=== PATIENT | female | born 1990 | race African-American/Black ===

== ENCOUNTER 2016-03-22 19:11 | Emergency (ER) | payer MEDICAID ==
[~2016-03-22 19:11] MED LIST: ACYC400T PO; [UNRECOGNIZED DRUG - CODE] TOPICAL
[2016-03-22 19:32] VITALS: BP 125/81; PULSE 77; RESP 16; TEMP 98; O2SAT 100
[2016-03-22] MEDS ORDERED: CYCL1TAB29 PO (20:18)
[2016-03-22] MEDS ORDERED: IBUP800T23 PO (20:18)
--- NOTE | 2016-03-22 20:19 | PD ---
HPI Chief Complaint: Musculoskeletal Complaint Time Seen by Provider: 20:16 Travel History International Travel<30 days: No Contact w/Intl Traveler<30days: No Traveled to known affect area: No History of Present Illness HPI Patient is a 25-year-old female who presents emergency department for evaluation of right shoulder pain. Patient states that she was attempting to catch her child when she slipped and landed on her shoulder. She states that she is able to move it but it's sore. She denies any numbness or tingling or weakness in her upper extremities. She denies any head injury or loss of consciousness. She reports the pain as a 4/10. Patient has not taken anything for the pain. PFSH Past Medical History Medical History: Denies Significant Hx Diminished Hearing: No Immunizations Current: Yes ?: Not : 1 Para: 1 Past Surgical History Section: Yes Social History Alcohol Use: No Tobacco Use: No Substance Use: No Allergies-Medications (Allergen,Severity, Reaction): Coded Allergies: No Known Allergies (Verified , 03/22/16) Reported Meds & Prescriptions Reported Meds & Active Scripts Active Flexeril (Cyclobenzaprine HCl) 10 Mg Tab 10 Mg PO TID PRN 10 Days Ibuprofen 800 Mg Tab 800 Mg PO Q8H PRN Review of Systems Except as stated in HPI: all other systems reviewed are Neg Musculoskeletal: Positive: Myalgias, Pain Physical Exam Narrative GENERAL: Well-nourished, well-developed patient. SKIN: Warm and dry. HEAD: Normocephalic. EYES: No scleral icterus. No injection or drainage. NECK: Supple, trachea midline. No JVD or lymphadenopathy. CARDIOVASCULAR: Regular rate and rhythm without murmurs, gallops, or rubs. RESPIRATORY: Breath sounds equal bilaterally. No accessory muscle use. GASTROINTESTINAL: Abdomen soft, non-tender, nondistended. MUSCULOSKELETAL: No cyanosis, or edema. Full range of motion in right shoulder , negative apprehension test, positive radial pulses, 5/5 muscle strength in bilateral upper extremities. Patient is neurovascularly intact. Nontender to palpation. BACK: Nontender without obvious deformity. No CVA tenderness. Data Data Last Documented VS Vital Signs Date Time Temp Pulse Resp B/P Pulse Ox O2 Delivery O2 Flow Rate FiO2 03/22/16 19:32 98.0 77 16 125/81 100 Room Air MDM Medical Decision Making Medical Screen Exam Complete: Yes Emergency Medical Condition: Yes Interpretation(s) Vital Signs Date Time Temp Pulse Resp B/P Pulse Ox O2 Delivery O2 Flow Rate FiO2 03/22/16 19:32 98.0 77 16 125/81 100 Room Air Differential Diagnosis Sprain versus strain versus fracture versus contusion versus other Narrative Course Patient is a 25-year-old female who presented to emergency for evaluation of right shoulder pain after a slip and fall that occurred this morning. Patient has no other complaints at this time. She has been able to move her arm without difficulty however she reports it being sore. Patient is neurologically and neurovascularly intact with full range of motion in her right shoulder. There is no obvious deformities noted, no erythema, ecchymosis noted. At this time patient be treated conservatively with ibuprofen and a muscle relaxer. She is encouraged to continue range of motion, alternate heat and ice to affected area. She is encouraged to follow-up with her primary doctor or orthopedic surgeon for further evaluation and management. Alternatively patient was encouraged return to emergency department for any new or worsening symptoms. Patient verbalized understanding of instructions. Patient is stable for discharge. Diagnosis Primary Impression: Shoulder pain, right Qualified Code: M25.511 - Acute pain of right shoulder Referrals: Primary Care Physician Patient Instructions: General Instructions, Muscle Strain (ED), Shoulder Pain ( GEN) Additional Instructions: Follow-up with your primary doctor Take medications as directed Return to emergency department he new or worsening symptoms Continue range of motion exercises, alternate HEAT and ice to affected area Med/Other Pt SpecificInfo: Prescription(s) given Scripts Cyclobenzaprine (Flexeril)10 Mg Tab10 Mg PO TID PRN (MUSCLE SPASM) 10 Days Ref 0 Prov:Lindsey Franco 03/22/16 Ibuprofen 800 Mg [id number] Mg PO Q8H PRN (Pain/Inflammation) #60 TAB Ref 0 Prov:Lindsey Franco 03/22/16 Disposition: 01 DISCHARGE HOME Condition: Stable Lindsey Franco Mar 22, 2016 20:18
[2016-04-12] MEDS ORDERED: CIPR-9 PO (19:32)
[2016-04-12] MEDS ORDERED: METR500T10 PO (19:32)
[2016-06-12] MEDS ORDERED: FLUC150T PO (14:11)
[2016-07-04] MEDS ORDERED: [UNRECOGNIZED DRUG - CODE] TOPICAL (14:16)
== END 2016-03-22 20:32 | disposition home or self-care (01) ==
LOC: PHED 19:11 → PHEFT 20:32
DX: M25.511 Pain in right shoulder (principal); W01.0XXA Fall on same level from slipping, tripping and stumbling without subsequent striking against object, initial encounter; Y93.F9 Activity, other caregiving
CPT/HCPCS: 99283

== ENCOUNTER 2016-04-14 13:55 | Emergency (ER) | payer MEDICAID ==
[~2016-04-14] VITALS: Ht 152.4 cm; Wt 56.0 kg
[~2016-04-14 13:55] MED LIST changes: -ACYC400T PO; +CIPR-9 PO; +METR500T10 PO; -[UNRECOGNIZED DRUG - CODE] TOPICAL
[2016-04-14 14:05] VITALS: BP 105/74; PULSE 90; RESP 15; TEMP 99; O2SAT 100
--- NOTE | 2016-04-14 14:24 | PD ---
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 She denies any fevers, vomiting, or any other symptoms. She states that her pelvic pain is about a 4 out of 10 and is worse when she walks around or moves. She states that she had talked to her FOOD PREPARER and was given Flagyl and ciprofloxacin starting yesterday. Modifying Factors: None Associated Signs & Symptoms: Pelvic pain, spotty vaginal bleeding, whitish discharge, diarrhea Risk Factors: None PFSH Past Medical History Medical History: Denies Significant Hx Diminished Hearing: No Immunizations Current: Yes ?: Unknown LMP: 03/24/2016 : 1 Para: 1 Past Surgical History Section: Yes Social History Alcohol Use: No Tobacco Use: No Substance Use: No Allergies-Medications (Allergen,Severity, Reaction): Coded Allergies: No Known Allergies (Verified , 04/14/16) Reported Meds & Prescriptions Reported Meds & Active Scripts Active Cipro (Ciprofloxacin HCl) 500 Mg Tab 500 Mg PO BID Metronidazole 500 Mg Tab 500 Mg PO TID Review of Systems Except as stated in HPI: all other systems reviewed are Neg Physical Exam Narrative GENERAL: Well-nourished, well-developed young -[place] female patient in no acute distress. SKIN: Warm and dry. HEAD: Normocephalic. EYES: No scleral icterus. No injection or drainage. NECK: Supple, trachea midline. CARDIOVASCULAR: Regular rate and rhythm without murmurs, gallops, or rubs. RESPIRATORY: Breath sounds equal bilaterally. No accessory muscle use. GASTROINTESTINAL: Abdomen soft, mild suprapubic tenderness without guarding or rebound, nondistended. GENITOURINARY: Normal external genitalia without lesions or erythema. Vaginal vault with dark blood but no significant drainage. Cervical os was closed without drainage. No cervical motion tenderness. Uterus nontender and nonenlarged. Bilateral adnexa nontender without masses. MUSCULOSKELETAL: No cyanosis, or edema. BACK: Nontender without obvious deformity. No CVA tenderness. Data Data Last Documented VS Vital Signs Date Time Temp Pulse Resp B/P Pulse Ox O2 Delivery O2 Flow Rate FiO2 04/14/16 15:00 90 14 106/69 100 Room Air 04/14/16 14:05 99.0 Orders Complete Blood Count With Diff (04/14/16 14:20) Comprehensive Metabolic Panel (04/14/16 14:20) Urinalysis - C+S If Indicated (04/14/16 14:20) Iv Access Insert/Monitor (04/14/16 14:20) Ecg Monitoring (04/14/16 14:20) Oximetry (04/14/16 14:20) Sodium Chloride 0.9% Flush (Ns Flush) (04/14/16 14:30) Ed Urine Pregnancytest Poc (04/14/16 14:20) Gc And Chlamydia Pcr (04/14/16 14:20) Wet Prep Profile (04/14/16 14:20) Labs Laboratory Tests Test 04/14/16 04/14/16 04/14/16 14:30 14:40 15:00 White Blood Count 7.2 TH/MM3 Red Blood Count 4.08 MIL/MM3 Hemoglobin 12.4 GM/DL Hematocrit 37.1 % Mean Corpuscular Volume 90.9 FL Mean Corpuscular Hemoglobin 30.3 PG Mean Corpuscular Hemoglobin 33.3 % Concent Red Cell Distribution Width 13.1 % Platelet Count 316 TH/MM3 Mean Platelet Volume 6.9 FL Neutrophils (%) (Auto) 72.4 % Lymphocytes (%) (Auto) 18.2 % Monocytes (%) (Auto) 8.1 % Eosinophils (%) (Auto) 1.1 % Basophils (%) (Auto) 0.2 % Neutrophils # (Auto) 5.2 TH/MM3 Lymphocytes # (Auto) 1.3 TH/MM3 Monocytes # (Auto) 0.6 TH/MM3 Eosinophils # (Auto) 0.1 TH/MM3 Basophils # (Auto) 0.0 TH/MM3 CBC Comment DIFF FINAL Differential Comment Sodium Level 141 MEQ/L Potassium Level 3.4 MEQ/L Chloride Level 106 MEQ/L Carbon Dioxide Level 26.4 MEQ/L Anion Gap 9 MEQ/L Blood Urea Nitrogen 7 MG/DL Creatinine 0.62 MG/DL Estimat Glomerular Filtration 144 ML/MIN Rate Random Glucose 91 MG/DL Calcium Level 8.5 MG/DL Total Bilirubin 0.3 MG/DL Aspartate Amino Transf 13 U/L (AST/SGOT) Alanine Aminotransferase 14 U/L (ALT/SGPT) Alkaline Phosphatase 69 U/L Total Protein 7.9 GM/DL Albumin 3.8 GM/DL Clue Cells (Wet Prep) NONE SEEN Vaginal Trichomonas (Wet Prep) NONE SEEN Vaginal Yeast (Wet Prep) NONE SEEN Urine Collection Type CLEAN CATCH Urine Color YELLOW Urine Turbidity CLEAR Urine pH 5.5 Urine Specific [place] 1.021 Urine Protein TRACE mg/dL Urine Glucose (UA) NEG mg/dL Urine Ketones TRACE mg/dL Urine Occult Blood LARGE Urine Nitrite NEG Urine Bilirubin NEG Urine Leukocyte Esterase SMALL Urine RBC 20-24 /hpf Urine WBC 3-5 /hpf Urine Squamous Epithelial 6-8 /hpf Cells Microscopic Urinalysis Comment CULT NOT INDICATED Urine Collection Time 15:00 [facility] Medical Decision Making Medical Screen Exam Complete: Yes Emergency Medical Condition: Yes Medical Record Reviewed: Yes Interpretation(s) Laboratory Tests Test 04/14/16 04/14/16 14:30 15:00 Mean Platelet Volume 6.9 FL (7.0-11.0) Neutrophils (%) (Auto) 72.4 % (16.0-70.0) Monocytes (%) (Auto) 8.1 % (0.0-8.0) Potassium Level 3.4 MEQ/L (3.5-5.1) Aspartate Amino Transf 13 U/L (15-37) (AST/SGOT) Urine Ketones TRACE mg/dL (NEG) Urine Occult Blood LARGE (NEG) Urine Leukocyte Esterase SMALL (NEG) Urine RBC 20-24 /hpf (0-3) Urine Squamous Epithelial 6-8 /hpf (0-5) Cells Differential Diagnosis Pelvic pains, vaginal discharge, spotty vaginal bleeding, diarrhea gastroenteritis versus cervicitis versus UTI versus PID versus threatened AB versus ectopic Narrative Course Pelvic exam is unremarkable except for vaginal bleeding. Wet prep is negative. She is not . UA did not show significant signs of UTI. Abdomen is fairly benign and I do not suspect an acute intra-abdominal process. Lab work did not indicate significant leukocytosis. At this point, I do not suspect acute processes. However, she may have some dysfunctional uterine bleeding causing the irregularity in her menses. Patient is already on antibiotics which was prescribed by her primary care. At this point, she should continue with the medications and follow-up with her physician. Return for any worsening in symptoms as necessary. The plan has been discussed with her and she states understanding. Diagnosis Primary Impression: Visit for gynecologic examination Disposition: 01 DISCHARGE HOME Condition: Stable Rodolfo Jimenez MD Apr 14, 2016 14:24
[2016-04-14] MEDS ORDERED: SODIUM CHLORIDE 0.9% FLUSH 5 ML FLUSH IVF PRN (14:30)
[2016-04-14 14:38] LABS: AUTOMATED NEUTROPHIL # 5.2 TH/MM3 (1.8-7.7); BASOPHIL % 0.2 % (0.0-2.0); EOSINOPHIL # 0.1 TH/MM3 (0-0.4); EOSINOPHIL % 1.1 % (0.0-4.0); HEMATOCRIT 37.1 % (35.0-46.0); HEMO FLAGS DIFF FINAL; LYMPH % 18.2 % (9.0-44.0); LYMPHOCYTE # 1.3 TH/MM3 (1.0-4.8); MEAN CELL VOLUME 90.9 FL (80.0-100.0); MEAN CORPUSCULAR HEMOGLOBIN 30.3 PG (27.0-34.0); MEAN CORPUSCULAR HGB CONC 33.3 % (32.0-36.0); MONO % 8.1 % (0.0-8.0); NEUT % 72.4 % (16.0-70.0); PLATELET COUNT 316 TH/MM3 (150-450); RED BLOOD COUNT 4.08 MIL/MM3 (4.00-5.30); RED CELL DISTRIBUTION WIDTH 13.1 % (11.6-17.2); WHITE BLOOD COUNT 7.2 TH/MM3 (4.0-11.0)
[2016-04-14 14:47] LABS: CHLORIDE 106 MEQ/L (98-107); POTASSIUM 3.4 MEQ/L (3.5-5.1); SODIUM (NA) 141 MEQ/L (136-145)
[2016-04-14 14:51] LABS: ANION GAP 9 MEQ/L (5-15); BICARBONATE 26.4 MEQ/L (21.0-32.0); BLOOD UREA NITROGEN 7 MG/DL (7-18)
[2016-04-14 14:54] LABS: ALT (GPT) 14 U/L (10-53); AST (GOT) 13 U/L (15-37); GLOMERULAR FILTRATION RATE 144 ML/MIN (>89)
[2016-04-14 14:56] LABS: TOTAL BILIRUBIN ADULT 0.3 MG/DL (0.2-1.0)
[2016-04-14 14:57] LABS: ALKALINE PHOSPHATASE 69 U/L (45-117)
[2016-04-14 15:00] VITALS: BP 106/69; PULSE 90; RESP 14; O2SAT 100
[2016-04-14 15:03] LABS: BLOOD, URINE LARGE (NEG); GLUCOSE,URINE NEG (NEG); KETONE, URINE TRACE mg/dL (NEG); NITRITE,URINE NEG (NEG); PH, URINE 5.5 (5.0-8.5)
[2016-04-14 15:14] LABS: METHOD OF COLLECTION CLEAN CATCH; URINE COLOR YELLOW (YELLW/STRAW)
[2016-04-14 15:15] LABS: COMMENT (UR) CULT NOT INDICATED; CULTURE IF INDICATED CULT NOT INDICATED
[2016-04-14 17:52] LABS: CHLAMYDIA PCR NOT DETECTED (NOT DETECT); NEISSERIA PCR NOT DETECTED (NOT DETECT)
[2016-06-12] MEDS ORDERED: FLUC150T PO (14:11)
[2016-07-04] MEDS ORDERED: [UNRECOGNIZED DRUG - CODE] TOPICAL (14:16)
== END 2016-04-14 15:43 | disposition home or self-care (01) ==
LOC: PHED 13:55
DX: R10.2 Pelvic and perineal pain (principal); N93.9 Abnormal uterine and vaginal bleeding, unspecified; N89.8 Other specified noninflammatory disorders of vagina; R19.7 Diarrhea, unspecified
CPT/HCPCS: 80053; 81001; 84703; 85025; 87210; 87491; 87591; 99284

== ENCOUNTER 2016-05-10 14:39 | Emergency (ER) | payer OTHER, MEDICAID ==
[~2016-05-10] VITALS: Ht 152.4 cm; Wt 60.0 kg
[2016-05-10 14:40] VITALS: BP 129/78; PULSE 94; RESP 15; TEMP 98.3; O2SAT 100
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
[2016-05-10] MEDS ORDERED: ACETAMINOPHEN/HYDROcodone 325 MG/5 MG TAB PO ONE (15:45)
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
[2016-05-10] MEDS ORDERED: IBUP800T23 PO (17:00)
[2016-05-10] MEDS ORDERED: EXTR500C PO (17:00)
[2016-05-10] MEDS ORDERED: ORPH100T99 PO (17:00)
[2016-06-12] MEDS ORDERED: FLUC150T PO (14:11)
[2016-07-04] MEDS ORDERED: [UNRECOGNIZED DRUG - CODE] TOPICAL (14:16)
== END 2016-05-10 18:15 | disposition home or self-care (01) ==
LOC: NETRI 14:39
DX: S50.12XA Contusion of left forearm, initial encounter (principal); V43.52XA Car driver injured in collision with other type car in traffic accident, initial encounter; Y92.410 Unspecified street and highway as the place of occurrence of the external cause
CPT/HCPCS: 70450; 72125; 73080; 99284; L0150

== ENCOUNTER 2017-03-05 18:28 | Emergency (ER) | payer MEDICAID ==
[~2017-03-05] VITALS: Ht 154.9 cm; Wt 61.0 kg
[~2017-03-05 18:28] MED LIST changes: +DIFL150T PO; -METR500T10 PO; +TERC0.4C2 VAGINAL; +ZITH500T PO
[2017-03-05 18:36] VITALS: BP 115/73; PULSE 82; RESP 16; TEMP 98.6; O2SAT 99
[2017-03-05 19:03] LABS: BILIRUBIN, URINE NEG (NEG); BLOOD, URINE TRACE (NEG); GLUCOSE,URINE NEG (NEG); KETONE, URINE NEG (NEG); NITRITE,URINE NEG (NEG); URINE LEUKOCYTE ESTERASE SMALL (NEG)
[2017-03-05 19:20] LABS: URINE COLOR YELLOW (YELLW/STRAW)
[2017-03-05 19:21] LABS: MUCUS URINE MOD /lpf (OCC)
[2017-03-05 19:22] LABS: AMORPHOUS SEDIMENT, URINE SMALL; BACTERIA, URINE FEW /hpf
--- NOTE | 2017-03-05 19:33 | PD ---
HPI Chief Complaint: Shoe Shiner Problem/Complaint Time Seen by Provider: 19:14 Travel History International Travel<30 days: Yes Contact w/Intl Traveler<30days: Yes Name of Country Traveled to: [facility] [place] Traveled to known affect area: No History of Present Illness HPI patient is a 26-year-old female presents emergency department for evaluation of vaginal discharge and vaginal lesion. Patient states she's been sexually active with only 1 partner for years, she became concerned when she felt a painful lesion on her genital that caused her to come in emergency department to be seen for possible STD. Denies any abdominal pain denies any bleeding denies any possibility for . States symptoms are moderate, location is Gen.'s, so should signs symptoms as above, context as above.. PFSH Past Medical History Diminished Hearing: No Immunizations Current: Yes ?: Not LMP: 1 WEEK AGO : 1 Para: 1 Past Surgical History Section: Yes Social History Alcohol Use: No Tobacco Use: No Substance Use: No Allergies-Medications (Allergen,Severity, Reaction): Coded Allergies: No Known Allergies (Verified Adverse Reaction, Unknown, 03/05/17) Reported Meds & Prescriptions Reported Meds & Active Scripts Active Acyclovir 400 Mg Tab 400 Mg PO TID 7 Days Flagyl (Metronidazole) 500 Mg Tab 500 Mg PO BID 7 Days Review of Systems Except as stated in HPI: all other systems reviewed are Neg Physical Exam Narrative GENERAL: Well-developed well-nourished, no obvious distress SKIN: Focused skin assessment warm/dry. HEAD: Atraumatic. Normocephalic. EYES: Pupils equal and round. No scleral icterus. No injection or drainage. ENT: No nasal bleeding or discharge. Mucous membranes pink and moist. NECK: Trachea midline. No JVD. CARDIOVASCULAR: Regular rate and rhythm. No murmur appreciated. RESPIRATORY: No accessory muscle use. Clear to auscultation. Breath sounds equal bilaterally. GASTROINTESTINAL: Abdomen soft, non-tender, nondistended. Hepatic and splenic margins not palpable. GENITOURINARY: Exam performed with female nurse steward/stewardess dining room present at all times, externally there are 4 or 5 small vesicle/papules on the vaginal introitus bordering on the perineum, no surrounding erythema, they're not ulcerated, they are significantly tender to palpation. There is no Bartholin's cyst. Internally the patient does have a milky white discharge consistent with BV, there is no cervical motion tenderness no cervical friability no cervical mass. No bleeding. MUSCULOSKELETAL: No obvious deformities. No clubbing. No cyanosis. No edema. NEUROLOGICAL: Awake and alert. No obvious cranial nerve deficits. Motor grossly within normal limits. Normal speech. PSYCHIATRIC: Appropriate mood and affect; insight and judgment normal. Data Data Last Documented VS Vital Signs Date Time Temp Pulse Resp B/P (MAP) Pulse Ox O2 Delivery O2 Flow Rate FiO2 03/05/17 21:11 72 16 133/68 (89) 100 03/05/17 18:36 98.6 Orders Orders Urinalysis - C+S If Indicated (03/05/17 18:39) Ed Urine Pregnancytest Poc (03/05/17 18:39) Wet Prep Profile (03/05/17 19:15) Gc And Chlamydia Pcr (03/05/17 19:15) Urine Culture (03/05/17 18:45) Ceftriaxone Inj (Rocephin Inj) (03/05/17 19:45) Azithromycin (Zithromax) (03/05/17 19:45) Metronidazole (Flagyl) (03/05/17 19:45) Ondansetron Odt (Zofran Odt) (03/05/17 19:45) Lidocaine 1% Inj (Xylocaine 1% Inj) (03/05/17 20:00) Ed Discharge Order (03/05/17 20:20) Labs Laboratory Tests Test 03/05/17 18:45 03/05/17 19:38 Urine Color YELLOW Urine Turbidity SLIGHT Urine pH 7.0 Urine Specific Dickey 1.025 Urine Protein NEG mg/dL Urine Glucose (UA) NEG mg/dL Urine Ketones NEG mg/dL Urine Occult Blood TRACE Urine Nitrite NEG Urine Bilirubin NEG Urine Leukocyte Esterase SMALL Urine RBC 4-9 /hpf Urine WBC 9-14 /hpf Urine Squamous Epithelial Cells 6-8 /hpf Urine Amorphous Sediment SMALL Urine Bacteria FEW /hpf Urine Mucus MOD /lpf Microscopic Urinalysis Comment CULTURE INDICATED Clue Cells (Wet Prep) NONE SEEN Vaginal Trichomonas (Wet Prep) NONE SEEN Vaginal Yeast (Wet Prep) NONE SEEN Chlamydia trachomatis DNA (PCR) NOT DETECTED Neisseria gonorrhoeae DNA (PCR) NOT DETECTED MDM Medical Decision Making Medical Screen Exam Complete: Yes Emergency Medical Condition: Yes Differential Diagnosis HSV, BV, CV, chlamydia, gonorrhea, UTI. Narrative Course Patient roomed emerged permit, benign abdomen, lesions on the perineum could be consistent with HSV or could be folliculitis. I think that it would be prudent to err on the side of caution and treat her for HSV. I discussed that she needs to follow up with health department for testing for hepatitis HSV HIV and syphilis. Given her possibility of exposure we'll also treat for gonorrhea and chlamydia as well as Trichomonas. Coverage for BV. test was negative. She is stable for discharge. Diagnosis Primary Impression: Bacterial vaginosis Additional Impression: Vaginal lesion Additional Instructions: Recommend follow-up with the health department or your INSIDE ACCOUNT REPRESENTATIVE for testing for hepatitis, HIV, syphilis and confirmation of herpes diagnosis. These may just be a small infection called folliculitis. No sex while the blisters are still painful on your vagina. Always use condoms to prevent the transmission of STDs. Med/Other Pt SpecificInfo: Prescription(s) given Scripts Acyclovir (Acyclovir) 400 Mg Tab 400 MG PO TID for Mgmt Viral Infection for 7 Days, TAB 0 Refills Prov: Hayes Haile MD 03/05/17 Metronidazole (Flagyl) 500 Mg Tab 500 MG PO BID for Infection for 7 Days, #14 TAB 0 Refills Prov: Hayes Haile MD 03/05/17 Disposition: 01 DISCHARGE HOME Condition: Stable Hayes Haile MD Mar 05, 2017 19:33
[2017-03-05] MEDS ORDERED: metroNIDAZOLE 500 MG TAB PO ONE (19:45)
[2017-03-05] MEDS ORDERED: LIDOCAINE HCL 1% 50 ML VIAL XX ONE (19:45)
[2017-03-05] MEDS ORDERED: AZITHROMYCIN 250 MG TAB PO ONE (19:45)
[2017-03-05] MEDS ORDERED: cefTRIAXone 250 MG VIAL IM ONE (19:45)
[2017-03-05] MEDS ORDERED: ONDANSETRON ODT 4 MG TAB PO ONE (19:45)
[2017-03-05] MEDS ORDERED: METR-1 PO (19:47)
[2017-03-05] MEDS ORDERED: ACYC400T PO (19:47)
[2017-03-05] MEDS ORDERED: LIDOCAINE HCL 1% 20 ML VIAL INFIL ONE (20:00)
[2017-03-05 21:11] VITALS: BP 133/68
== END 2017-03-05 21:13 | disposition home or self-care (01) ==
LOC: PHED 18:28
DX: N76.0 Acute vaginitis (principal); B96.89 Other specified bacterial agents as the cause of diseases classified elsewhere
CPT/HCPCS: 81001; 84703; 87086; 87210; 87491; 87591; 96372; 99284; J0696